=== PATIENT | male | born 1995 | race Caucasian/White ===

== ENCOUNTER 2017-12-19 02:13 | Emergency (ER) | payer SELFPAY ==
[~2017-12-19] VITALS: Ht 185.4 cm; Wt 131.8 kg
[2017-12-19 02:14] VITALS: TEMP 96.8
[2017-12-19 08:20] VITALS: BP 110/68; PULSE 82
== END 2017-12-19 08:38 | disposition home or self-care (01) ==
LOC: COL.ER 02:13
DX: S00.81XA Abrasion of other part of head, initial encounter (principal); F10.129 Alcohol abuse with intoxication, unspecified; W19.XXXA Unspecified fall, initial encounter; Y90.8 Blood alcohol level of 240 mg/100 ml or more
CPT/HCPCS: J2405; J7030